=== PATIENT | male | born 1970 | race African-American/Black ===

== ENCOUNTER 2016-08-08 12:19 | Inpatient (IN) | payer MEDICAID, MEDICARE ==
[2016-08-08] VITALS (9 sets, daily range): BP systolic 108–155; BP diastolic 60–89
[~2016-08-08] VITALS: Ht 175.3 cm; Wt 86.2 kg
--- NOTE | 2016-08-08 12:30 | NUR ---
PATIENT BIB [facility] D/T NOSE BLOOD S/P DIALYSIS. PATIENT ALSO C/O BACK PAIN. PATIENT PROVIDED WITH SAFETY AND COMFORT MEASURES. A/OX 4. VITALS STABLE. AWAITING MD ORDERS.
[2016-08-08] MEDS ORDERED: HYDROMORPHONE INJ 2 MG/ML DISP.SYRIN IV ONE (13:00)
[2016-08-08] MEDS ORDERED: diphenhydrAMINE HCL 50 MG/ML VIAL IV ONE (13:00)
[2016-08-08] MEDS ORDERED: HYDROMORPHONE INJ 2 MG/ML DISP.SYRIN ONE (13:03)
[2016-08-08] MEDS ORDERED: diphenhydrAMINE HCL 50 MG/ML VIAL ONE (13:03)
[2016-08-08 13:11] LABS: MEAN CORPUSCULAR HEMOGLOBIN 29 PG (26.0-33.0); MEAN CORPUSCULAR HGB CONC 35 g/dl (31.0-36.0); MEAN CORPUSCULAR VOLUME 84 fL (80-96); RDW COEFFICIENT OF VARIATION 17.6 (11.5-15.0); RED BLOOD CELL COUNT(AUTO) 2.07 MIL/uL (4.5-6.0)
--- NOTE | 2016-08-08 13:12 | NUR ---
MEDICATED PATIENT PER MD ORDERS.
[2016-08-08 13:15] LABS: PLATELET COUNT (AUTO) 47 /CMM (150-450)
[2016-08-08 13:16] LABS: CALCIUM, SERUM 9.8 mg/dL (8.5-10.1); CREATININE 4.8 mg/dL (0.6-1.3); HEMATOCRIT 17 % (39-51)
--- NOTE | 2016-08-08 13:21 | NUR ---
CALLED 'S OFFICE, DOOR REPAIRMAN, PAGED TO CALL BACK
[2016-08-08 13:41] LABS: ALBUMIN 2.4 g/dL (3.4-5.0); BILIRUBIN,DIRECT 1.6 mg/dL (0.0-0.2); BILIRUBIN,TOTAL 2.2 mg/dL (0.2-1.0); TOTAL PROTEIN, SERUM 7.4 g/dL (6.4-8.2)
[2016-08-08 13:51] LABS: EOSINOPHILS % (MANUAL) 2 % (0-4); LYMPHOCYTES % (MANUAL) 21 % (16-48); MONOCYTES % (MANUAL) 10 % (0-11.0); NEUTROPHILS % (MANUAL) 67 (42-76)
--- NOTE | 2016-08-08 14:10 | NUR ---
CALLED NURSING SUP. FOR MS BED
--- NOTE | 2016-08-08 14:25 | NUR ---
REPORT GIVEN TO BIGG MICHELE FOR ROYA
[2016-08-08] MEDS ORDERED: CLON0.2T PO ×2 (15:06)
[2016-08-08] MEDS ORDERED: LACT1CAP61 PO (15:06)
[2016-08-08] MEDS ORDERED: MINO2.5T PO (15:06)
[2016-08-08] MEDS ORDERED: FOLI0.8T23 PO (15:06)
[2016-08-08] MEDS ORDERED: FOLI0.8T PO (15:06)
[2016-08-08] MEDS ORDERED: GABA-532 PO (15:06)
[2016-08-08] MEDS ORDERED: ASCO250T5 PO (15:06)
[2016-08-08] MEDS ORDERED: BENA20TA2 PO (15:06)
[2016-08-08] MEDS ORDERED: CARV25TA2 PO (15:06)
[2016-08-08] MEDS ORDERED: PROT946L PO (15:06)
[2016-08-08] MEDS ORDERED: HYDR2DIS IV (15:06)
[2016-08-08] MEDS ORDERED: CALC667C6 PO (15:06)
[2016-08-08] MEDS ORDERED: HYDR-548 PO (15:06)
[2016-08-08] MEDS ORDERED: HYDR500C2 PO (15:06)
--- NOTE | 2016-08-08 15:46 | NUR ---
LEFT A MESSAGE TO DR. RAMIREZ REGARDING ADMITTING ORDERS
--- NOTE | 2016-08-08 16:50 | NUR ---
LEFT A MESSAGE TO DR BISHOP FOR ADMITTING ORDERS.
--- NOTE | 2016-08-08 16:55 | NUR ---
LAB CALLED REGARDING PLATELETPHERESIS THAT ORDERED IN THE ER. WILL NOTIFY
--- NOTE | 2016-08-08 16:59 | NUR ---
DR RAMIREZ CALLED BACK. ORDERS RECEIVED.
--- NOTE | 2016-08-08 17:05 | NUR ---
CALLED LAB TO CONFIRM ER ORDER AND ONE UNIT OF PRBC
--- NOTE | 2016-08-08 17:30 | NUR ---
CALLED DR WESTFALL FOR PAIN MANAGEMENT. ORDERS RECEIVED AND CARRIED OUT
[2016-08-08] MEDS: diphenhydrAMINE HCL 50 MG/ML VIAL IV PRN (17:44)
[2016-08-08] MEDS: HYDROMORPHONE INJ 2 MG/ML DISP.SYRIN IV PRN ×2 (17:44→23:47)
[2016-08-08] MEDS: MINOXIDIL (2.5MG) 2.5 MG TABLET PO SCH (17:47)
[2016-08-08] MEDS: PROSOURCE / PROSTAT (PYXIS) 30 ML UDC PO SCH (18:00)
[2016-08-08] MEDS ORDERED: CLONIDINE HCL 0.1 MG TABLET PO PRN (18:00)
[2016-08-08] MEDS ORDERED: HYDROCODONE/APAP 10/325MG 1 EA TABLET PO PRN (18:00)
[2016-08-08] MEDS ORDERED: HYDROMORPHONE INJ 2 MG/ML DISP.SYRIN IV PRN (18:00)
[2016-08-08] MEDS: GABAPENTIN 100 MG CAPSULE PO SCH (18:20)
[2016-08-08] MEDS: LACTOBACILLUS RHAMNOSUS GG 1 EACH CAP.SPRINK PO SCH (18:20)
[2016-08-08] MEDS: ASCORBIC ACID 500 MG TABLET PO SCH (18:20)
[2016-08-08] MEDS: CALCIUM ACETATE 667 MG TABLET PO SCH (18:20)
[2016-08-08] MEDS: CLONIDINE HCL 0.1 MG TABLET PO SCH (18:21)
--- NOTE | 2016-08-08 18:40 | NUR ---
RN CLOSING NOTES PATIENT IS IN BED. HOB ELEVATED, BREATHING REGULAR AND UNLABORED, NO SIGNS AND SYMPTOMS OF DISTRESS OR ANY DISCOMFORT NOTED. VITAL SIGNS ARE STABLE. NO COMPLAIN OF CHEST PAIN, SHORTNESS OF BREATH. ALL SCHEDULED MEDS ADMINISTERED. PENDING ORDER OF ONE UNIT PRBC AND PLATELETPHERESIS. WILL ENDORSE TO SUPERINTENDENT WAREHOUSE RN FOR CONTINUITY OF CARE.
--- NOTE | 2016-08-08 19:20 | NUR ---
RN NOTES RECEIVED AWAKE. HOB ELEVATED, BREATHING REGULAR AND UNLABORED, NO SIGNS AND SYMPTOMS OF DISTRESS OR ANY DISCOMFORT NOTED. PT ALERT AND ORIENTED X3, DENIES CHEST PAIN AND SOB AT THIS TIME. NO BLEEDING ON THE NOSE NOTED. BRET CATH ON RIGHT UPPER CHEST WALL PATENT AND INTACT. RIGHT UPPER ARM AV SHUNT, THRILL AND BRUIT PRESENT. KEPT COMFORTABLE AND ATTENDED. SAFETY MEASURES IN PLACE. AWAITING FOR BLOOD AND PLATELET TO BE READY FOR TRANSFUSION. WILL CONTINUE TO MNITOR PT.
[2016-08-08] MEDS ORDERED: BLOOD IV SET 1 EA INFUS.SET MC ONE (20:50)
[2016-08-08] MEDS ORDERED: IV NS 0.9% 250 ML IV ONE (20:51)
[2016-08-08] MEDS: CARVEDILOL 12.5 MG TABLET PO SCH (21:00)
--- NOTE | 2016-08-08 21:00 | NUR ---
RN NOTES COREG 25 MG TAB NOT GIVEN, BP 108/68.ILL CONTINUE TO MONITOR PT.
--- NOTE | 2016-08-08 21:36 | NUR ---
RN NOTES PRBC 1 UNIT STARTED. VITAL SIGNS STABLE BP112/62, TEMP 98.6, RR 18, HR 83 02SAT 97% AT ROOM AIR. PT DENIES ANY PAIN AND DISCOMFORT AT THIS TIME. WILL CONTINUE TO MONITOR PT.
--- NOTE | 2016-08-08 23:47 | NUR ---
RN NOTES PT COMPLAINS OF 9/10 PAIN ON HIS LOWER BACK AND BOTH LOWER LEG. DILAUDID 2MG GIVEN IV. WILL CONTINUE TO MONITOR PT.
[2016-08-09] VITALS (11 sets, daily range): BP systolic 80–129; BP diastolic 41–90
[2016-08-09] MEDS: diphenhydrAMINE HCL 50 MG/ML VIAL IV PRN ×5 (00:01→19:32)
--- NOTE | 2016-08-09 00:01 | NUR ---
RN NOTES PT COMPLAINING OF GENERALIZED BODY ITCHING, BENADRYL 25 MG GIVEN IV. WILL CONTINUE TO MONITOR PT.
--- NOTE | 2016-08-09 00:25 | NUR ---
RN NOTES PRBC 1 UNIT DONE, VITAL SIGNS STABLE, DENIES ANY PAIN AND DISCOMFORT. NO REACTION IN BLOOD TRANSFUSION NOTED. PLATELET TO FOLLOW. WILL CONTINUE TO MONITOR.
--- NOTE | 2016-08-09 01:05 | NUR ---
RN NOTES 1 BAG OF PLATELET STARTED, VITAL SIGNS STABLE BP 127/68, TEMP 98.1, HR 84, RR 19, O2 SAT 97%. PT DENIES ANY PAIN AND DISCOMFORT. WILL CONTINUE TO MONITOR PT.
--- NOTE | 2016-08-09 01:21 | NUR ---
RN NOTES 1 BAG OF PLATELET DONE, VITAL SIGNS STABLE. PT DENIES ANY PAIN AND DISCOMFORT. WILL CONTINUE TO MONITOR.
[2016-08-09] MEDS: HYDROMORPHONE INJ 2 MG/ML DISP.SYRIN IV PRN ×5 (05:46→23:34)
--- NOTE | 2016-08-09 05:46 | NUR ---
RN NOTES PT COMPLAINS OF 9/10 PAIN ON HIS LOWER BACK AND BOTH LOWER LEG. DILAUDID 2MG GIVEN IV. WILL CONTINUE TO MONITOR PT.
--- NOTE | 2016-08-09 06:05 | NUR ---
RN NOTES PT COMPLAINING OF GENERALIZED BODY ITCHING, BENADRYL 25 MG GIVEN IV. WILL CONTINUE TO MONITOR PT.
--- NOTE | 2016-08-09 07:20 | NUR ---
RN NOTES PT ASLEEP, HOB ELEVATED, NO SIGNS OF DISTRESS AND DISCOMFORT NOTED. ON ROOM AIR AND TOLERATED WELL. VITAL SIGNS STABLE, AFEBRILE. NO REACTION FROM BLOOD TRANSFUSION NOTED. NO EPISODE OF EPISTAXIS NOTED. KEPT PAIN AT TOLERABLE LEVEL. KEPT COMFORTABLE AND ATTENDED. FALL PRECAUTION OBSERVED. ENDORSED TO MORNING RN FOR CONTINUITY OF CARE.
[2016-08-09 07:28] LABS: MEAN CORPUSCULAR HEMOGLOBIN 29 PG (26.0-33.0); MEAN CORPUSCULAR HGB CONC 34 g/dl (31.0-36.0); MEAN CORPUSCULAR VOLUME 85 fL (80-96); PLATELET COUNT (AUTO) 67 /CMM (150-450); RDW COEFFICIENT OF VARIATION 18.5 (11.5-15.0); RED BLOOD CELL COUNT(AUTO) 2.21 MIL/uL (4.5-6.0); WHITE BLOOD COUNT (AUTO) 13.1 K/uL (4.3-11.0)
[2016-08-09 07:33] LABS: HEMOGLOBIN 6.4 g/dL (13.5-17.5)
[2016-08-09 07:34] LABS: HEMATOCRIT 19 % (39-51)
--- NOTE | 2016-08-09 08:00 | NUR ---
MS RN AM NOTES RECEIVED AWAKE. HOB ELEVATED, BREATHING REGULAR AND UNLABORED, NO SIGNS AND SYMPTOMS OF DISTRESS OR ANY DISCOMFORT NOTED. PT ALERT AND ORIENTED X3, DENIES CHEST PAIN AND SOB AT THIS TIME. NO EPISTAXIS NOTED. WITH BRET CATH ON RIGHT UPPER CHEST WALL PATENT AND INTACT. RIGHT UPPER ARM AV SHUNT, THRILL AND BRUIT PRESENT. KEPT COMFORTABLE AND ATTENDED. SAFETY MEASURES IN PLACE. PT'S HGB IS 6.4 WILL NOTIFY MD.WILL CONTINUE TO MONITOR PT.CALL LIGHT PLACED WITHIN REACH.
[2016-08-09] MEDS: PROSOURCE / PROSTAT (PYXIS) 30 ML UDC PO SCH ×3 (09:00→17:00)
[2016-08-09 09:09] LABS: EOSINOPHILS % (MANUAL) 2 % (0-4); LYMPHOCYTES % (MANUAL) 29 % (16-48); MONOCYTES % (MANUAL) 7 % (0-11.0); NEUTROPHILS % (MANUAL) 62 (42-76)
[2016-08-09] MEDS ORDERED: ONDANSETRON HCL/PF 4 MG/2 ML VIAL IV PRN (09:30)
[2016-08-09] MEDS ORDERED: EPOETIN ALFA (10,000 UNIT) 10,000 UNIT/ML VIAL SQ ONE (09:30)
[2016-08-09] MEDS ORDERED: ACETAMINOPHEN 325 MG TABLET PO PRN (09:30)
[2016-08-09 09:49] LABS: CALCIUM, SERUM 9.9 mg/dL (8.5-10.1); CREATININE 5.5 mg/dL (0.6-1.3); MAGNESIUM 2.3 mg/dL (1.8-2.4)
[2016-08-09] MEDS: VIT B CMPLX 3/FA/VIT C/BIOTIN 1 TAB TABLET PO SCH (10:04)
[2016-08-09] MEDS: CALCIUM ACETATE 667 MG TABLET PO SCH ×3 (10:08→17:29)
[2016-08-09] MEDS: CLONIDINE HCL 0.1 MG TABLET PO SCH ×3 (10:08→17:00)
[2016-08-09] MEDS: BENAZEPRIL HCL 20 MG TABLET PO SCH (10:09)
[2016-08-09] MEDS: ASCORBIC ACID 500 MG TABLET PO SCH (10:10)
[2016-08-09] MEDS: GABAPENTIN 100 MG CAPSULE PO SCH ×3 (10:11→17:24)
[2016-08-09] MEDS: LACTOBACILLUS RHAMNOSUS GG 1 EACH CAP.SPRINK PO SCH ×3 (10:12→17:22)
[2016-08-09] MEDS: FOLIC ACID 1 MG TABLET PO SCH (10:12)
[2016-08-09] MEDS: MINOXIDIL (2.5MG) 2.5 MG TABLET PO SCH ×3 (10:14→17:00)
[2016-08-09] MEDS: CARVEDILOL 12.5 MG TABLET PO SCH ×2 (10:15→21:21)
[2016-08-09] MEDS: HYDROXYUREA 500 MG CAPSULE PO SCH (10:20)
--- NOTE | 2016-08-09 13:45 | NUR ---
HEMODIALYSIS STARTED. VITAL SIGNS STABLE. WILL CONTINUE TO MONITOR.
--- NOTE | 2016-08-09 14:25 | NUR ---
PT WAS SEEN BY DR WHARTON AND MADE AWARE OF HGB OF 6.4 WITH ORDER OF TRANSFUSING ANOTHER 1 UNIT OF PRBC FOR A TOTAL OF TRANSFUSING [address] TORRI RAMIREZ'S ORDER OF 1 UNIT OF PRBC.
[2016-08-09] MEDS ORDERED: BLOOD IV SET 1 EA INFUS.SET MC ONE (15:14)
[2016-08-09] MEDS ORDERED: IV NS 0.9% 250 ML IV ONE (15:15)
--- NOTE | 2016-08-09 15:45 | NUR ---
1ST UNIT OF PRBC STARTED WITH HEMODIALYSIS. PATIENT VITAL SIGNS STABLE. WILL CONTINUE TO MONITOR.
--- NOTE | 2016-08-09 16:11 | NUR ---
1ST UNIT PRBC TRANSFUSION COMPLETED. PATIENT TOLERATED WELL WITH NO ADVERSE REACTION.
--- NOTE | 2016-08-09 16:15 | NUR ---
2ND UNIT PRBC STARTED, VITAL SIGNS STABLE.
--- NOTE | 2016-08-09 16:30 | NUR ---
2ND UNIT PRBC TRANSFUSION COMPLETED. PATIENT VITAL SIGN STABLE, NO ADVERSE REACTION NOTED.
--- NOTE | 2016-08-09 16:35 | NUR ---
HEMODIALYSIS COMPLETED, 2300 ML OUTPUT. PATIENT TOLERATED WELL. VITAL SIGNS STABLE.
--- NOTE | 2016-08-09 18:00 | NUR ---
PT IS RESTING IN BED WITH NO S/S OF PAIN OR DISTRESS.CALL LIGHT PLACED WITHIN REACH.
--- NOTE | 2016-08-09 19:15 | NUR ---
RN NOTES RECEIVED AWAKE. HOB ELEVATED, BREATHING REGULAR AND UNLABORED, NO SIGNS AND SYMPTOMS OF DISTRESS OR ANY DISCOMFORT NOTED. ALERT AND ORIENTED X3, DENIES CHEST PAIN AND SOB AT THIS TIME. PORT A CATH ON RIGHT UPPER CHEST WALL PATENT AND INTACT. RIGHT UPPER ARM AV SHUNT, THRILL AND BRUIT PRESENT. NO SIGNS OF BLEEDING AND NO REACTION TO BT NOTED. KEPT COMFORTABLE AND ATTENDED. SAFETY MEASURES IN PLACE. WILL CONTINUE TO MONITOR PT.
--- NOTE | 2016-08-09 23:34 | NUR ---
RN NOTES PT COMPLAINS OF PAIN ON HIS LOWER BACK AND BOTH LEGS, DILAUDID 2 MG GIVEN IV. WILL CONTINUE TO MONITOR PT.
[2016-08-10] MEDS: HYDROMORPHONE INJ 2 MG/ML DISP.SYRIN IV PRN ×5 (04:18→21:22)
[2016-08-10] MEDS: diphenhydrAMINE HCL 50 MG/ML VIAL IV PRN ×5 (04:29→21:22)
--- NOTE | 2016-08-10 04:29 | NUR ---
RN NOTES PT VERBALIZING GENERALIZED ITCHING, BENADRYL 25 MG GIVEN IV. WILL CONTINUE TO MONITOR PT.
[2016-08-10 06:30] LABS: HEMATOCRIT 22 % (39-51); HEMOGLOBIN 7.7 g/dL (13.5-17.5); MEAN CORPUSCULAR HEMOGLOBIN 30 PG (26.0-33.0); MEAN CORPUSCULAR HGB CONC 35 g/dl (31.0-36.0); MEAN CORPUSCULAR VOLUME 86 fL (80-96); PLATELET COUNT (AUTO) 63 /CMM (150-450); RDW COEFFICIENT OF VARIATION 18.1 (11.5-15.0); WHITE BLOOD COUNT (AUTO) 12.2 K/uL (4.3-11.0)
--- NOTE | 2016-08-10 06:45 | NUR ---
RN NOTES PT COMPLAINS OF LOWER BACK AND BOTH LEG PAIN 10/29, DILAUDID 2 MG GIVEN IV. WILL CONTINUE TO MONITOR PT.
--- NOTE | 2016-08-10 06:47 | NUR ---
RN NOTES PT ASLEEP, HOB ELEVATED, NO SIGNS OF DISTRESS AND DISCOMFORT NOTED. ON ROOM AIR AND TOLERATED WELL. VITAL SIGNS STABLE, AFEBRILE. NO REACTION FROM BLOOD TRANSFUSION NOTED. NO EPISODE OF EPISTAXIS AND SIGNS OF BLEEDING NOTED. KEPT PAIN AT TOLERABLE LEVEL. KEPT COMFORTABLE AND ATTENDED. FALL PRECAUTION OBSERVED. WILL ENDORSE TO MORNING RN FOR CONTINUITY OF CARE.
[2016-08-10 06:51] LABS: CALCIUM, SERUM 9.7 mg/dL (8.5-10.1); CREATININE 4.8 mg/dL (0.6-1.3); MAGNESIUM 2.3 mg/dL (1.8-2.4); PHOSPHORUS 6.1 mg/dL (2.5-4.9); POTASSIUM 4.4 mmol/L (3.5-5.1)
--- NOTE | 2016-08-10 07:15 | NUR ---
MS RN OPENING NOTES RECEIVED PT. FROM NIGHTSHIFT NURSE IN STABLE CONDITION. PT. IS A/O X3. NO SOB OR SIGNS OF DISTRESS NOTED. NO COMPLAINTS OF DIZZINESS OR VERBALIZED PAIN AT THIS TIME. PORT A CATH PRESENT ON RIGHT UPPER CHEST WALL PATENT AND INTACT. RIGHT UPPER ARM AV SHUNT ALSO PRESENT. THRILL FELT AND BRUIT AUSCULTATED. BED IN LOW LOCKED POSITION, SIDE RAILS UP X2, CALL LIGHT WITHIN REACH. WILL CONTINUE TO MONITOR.
[2016-08-10 07:42] LABS: LYMPHOCYTES % (MANUAL) 19 % (16-48); MONOCYTES % (MANUAL) 9 % (0-11.0); NEUTROPHILS % (MANUAL) 72 (42-76)
[2016-08-10 07:48] LABS: IRON, SERUM 221 ug/dl (50-175); TOTAL IRON BINDING CAPACITY 208 ug/dl (250-450)
[2016-08-10 08:00] VITALS: BP 120/76
[2016-08-10] MEDS: LACTOBACILLUS RHAMNOSUS GG 1 EACH CAP.SPRINK PO SCH ×3 (08:49→16:52)
[2016-08-10] MEDS: ASCORBIC ACID 500 MG TABLET PO SCH (08:50)
[2016-08-10] MEDS: GABAPENTIN 100 MG CAPSULE PO SCH ×3 (08:50→16:53)
[2016-08-10] MEDS: CALCIUM ACETATE 667 MG TABLET PO SCH ×3 (08:50→16:53)
[2016-08-10] MEDS: FOLIC ACID 1 MG TABLET PO SCH (08:50)
[2016-08-10] MEDS: BENAZEPRIL HCL 20 MG TABLET PO SCH (08:50)
[2016-08-10] MEDS: VIT B CMPLX 3/FA/VIT C/BIOTIN 1 TAB TABLET PO SCH (08:50)
[2016-08-10] MEDS: HYDROXYUREA 500 MG CAPSULE PO SCH (08:51)
[2016-08-10] MEDS: MINOXIDIL (2.5MG) 2.5 MG TABLET PO SCH ×3 (08:51→16:53)
[2016-08-10] MEDS: CARVEDILOL 12.5 MG TABLET PO SCH ×2 (08:58→20:18)
[2016-08-10] MEDS: PROSOURCE / PROSTAT (PYXIS) 30 ML UDC PO SCH ×3 (08:59→16:53)
[2016-08-10] MEDS: CLONIDINE HCL 0.1 MG TABLET PO SCH ×3 (08:59→16:53)
--- NOTE | 2016-08-10 09:00 | NUR ---
MS MICHELE NOTES 0900 BP MEDICATIONS WERE HELD DUE TO DIALYSIS TREATMENT
--- NOTE | 2016-08-10 09:21 | NUR ---
MS RN NOTES PT. WILL NO LONGER GET DIALYSIS TODAY. WILL RECEIVE TOMORROW. BP REMAINS STABLE AT 120/76, HR 72. PT. ASKS THAT WE CONTINUE TO HOLD BP MEDICATION AND SEE HOW HIS BP IS AROUND 1300 WHEN HE HIS NEXT BP MEDICATIONS ARE DUE.
[2016-08-10 15:38] VITALS: BP 120/76
[2016-08-10 15:42] VITALS: BP 127/64
--- NOTE | 2016-08-10 19:25 | NUR ---
MS RN OPENING NOTES: RECEIVED PT ASLEEP IN BED. PT IS A/O X3. CALL LIGHT WITHIN PT'S REACH. BED KEPT IN LOCKED, LOWEST POSITION, AND SIDE RAILS X 2 UP. PT HAS PORT A CATH ON R UPPER CHEST WALL. PT ALSO HAS R UPPER AV SHUNT. NO SIGNS OR SYMPTOMS OF DISTRESS NOTED AT THIS TIME. WILL CONTINUE TO MONITOR PT.
[2016-08-10 20:00] VITALS: BP 134/65
--- NOTE | 2016-08-10 21:22 | NUR ---
MS RN NOTES: PT COMPLAINED OF 8/10 LOWER BACK AND BILATERAL LEG PAIN. PT WAS ADMINISTERED DILAUDID 2MG IV AND BENADRYL 25MG IV. WILL CONTINUE TO MONITOR PT.
[2016-08-11] MEDS: diphenhydrAMINE HCL 50 MG/ML VIAL IV PRN ×6 (01:57→21:58)
[2016-08-11] MEDS: HYDROMORPHONE INJ 2 MG/ML DISP.SYRIN IV PRN ×6 (01:58→21:58)
--- NOTE | 2016-08-11 01:58 | NUR ---
MS RN NOTES: PT COMPLAINED OF 9/10 LOWER BACK AND BILATERAL LEG PAIN. PT WAS ADMINISTERED HIS DILAUDID AND BENADRYL. PT'S BP WAS 119/60 HR 80. WILL CONTINUE TO MONITOR PT.
--- NOTE | 2016-08-11 06:00 | NUR ---
MS RN NOTES: PT REQUESTED FOR HIS DILAUDID AND BENADRYL DUE TO 8/10 LOWER BACK PAIN AND BILATERAL LEGS PAIN. MEDS WERE ADMINISTERED. BP WAS 114/58 HR 80. WILL CONTINUE TO MONITOR PT.
--- NOTE | 2016-08-11 07:10 | NUR ---
MS RN OPENING NOTES RECEIVED PT. FROM NIGHTSHIFT NURSE IN STABLE CONDITION. PT. IS A/O X3. NO SOB OR SIGNS OF DISTRESS NOTED. NO COMPLAINTS OF DIZZINESS OR VERBALIZED PAIN AT THIS TIME.NO REPORTS OF ANY BLEEDING EPISODES DURING THE NIGHT. PORT A CATH PRESENT ON RIGHT UPPER CHEST WALL PATENT AND INTACT. RIGHT UPPER ARM AV SHUNT ALSO PRESENT. THRILL FELT AND BRUIT AUSCULTATED. BED IN LOW LOCKED POSITION, SIDE RAILS UP X2, CALL LIGHT WITHIN REACH. WILL CONTINUE TO MONITOR.
--- NOTE | 2016-08-11 07:24 | NUR ---
MS RN CLOSING NOTES: ALL NEEDS WERE ATTENDED AND ANTICIPATED FOR. PT KEPT CLEAN, DRY, AND COMFORTABLE. PAIN MANAGEMENT WAS TAKEN CARE OF. PT HAS PORT A CATH ON R UPPER CHEST WALL AND IS PATENT AND INTACT. PT ALSO HAS R UPPER AV SHUNT AND BRUIT/THRILL PRESENT. PT INFORMED OF UPCOMING HD THIS MORNING. CALL LIGHT WITHIN PT'S REACH. BED KEPT IN LOCKED, LOWEST, POSITION, AND SIDE RAILS X 2 UP. NO SIGNS OR SYMPTOMS OF DISTRESS NOTED AT THIS TIME. ENDORSED TO AM NURSE FOR ROYA.
[2016-08-11 08:00] VITALS: BP 109/66
[2016-08-11] MEDS: GABAPENTIN 100 MG CAPSULE PO SCH ×3 (08:35→17:55)
[2016-08-11] MEDS: FOLIC ACID 1 MG TABLET PO SCH (08:35)
[2016-08-11] MEDS: CALCIUM ACETATE 667 MG TABLET PO SCH ×3 (08:35→17:55)
[2016-08-11] MEDS: ASCORBIC ACID 500 MG TABLET PO SCH (08:35)
[2016-08-11] MEDS: VIT B CMPLX 3/FA/VIT C/BIOTIN 1 TAB TABLET PO SCH (08:35)
[2016-08-11] MEDS: LACTOBACILLUS RHAMNOSUS GG 1 EACH CAP.SPRINK PO SCH ×3 (08:35→17:55)
[2016-08-11] MEDS: HYDROXYUREA 500 MG CAPSULE PO SCH (08:35)
[2016-08-11] MEDS: BENAZEPRIL HCL 20 MG TABLET PO SCH (08:36)
[2016-08-11] MEDS: CLONIDINE HCL 0.1 MG TABLET PO SCH ×3 (08:36→17:00)
[2016-08-11] MEDS: CARVEDILOL 12.5 MG TABLET PO SCH ×2 (08:36→21:30)
[2016-08-11] MEDS: MINOXIDIL (2.5MG) 2.5 MG TABLET PO SCH ×3 (08:36→17:00)
[2016-08-11] MEDS: PROSOURCE / PROSTAT (PYXIS) 30 ML UDC PO SCH ×3 (08:37→16:28)
--- NOTE | 2016-08-11 13:49 | NUR ---
MS RN NOTES 1300 BP MEDICATIONS WERE NOT ADMINISTERED. PT. IS CURRENTLY RECEIVING DIALYSIS TREATMENT AND IS EXPECTED TO GET 5L TAKEN OUT. CURRENT BP IS 123/55, HR 85
[2016-08-11] MEDS ORDERED: EPOETIN ALFA (10,000 UNIT) 10,000 UNIT/ML VIAL IV ONE (15:00)
[2016-08-11 15:53] LABS: HEMOGLOBIN 7.2 g/dL (13.5-17.5)
[2016-08-11 16:00] VITALS: BP 89/58
--- NOTE | 2016-08-11 18:55 | NUR ---
MS RN CLOSING NOTES: ALL NEEDS WERE ATTENDED AND ANTICIPATED FOR. PT KEPT CLEAN, DRY, AND COMFORTABLE. PAIN MANAGEMENT WAS TAKEN CARE OF. NO ACUTE CHANGES IN CONDITION DURING SHIFT. CALL LIGHT WITHIN PT'S REACH. BED KEPT IN LOCKED, LOWEST, POSITION, AND SIDE RAILS X 2 UP. NO SIGNS OR SYMPTOMS OF DISTRESS NOTED AT THIS TIME. WILL ENDORSE TO NIGHTSHIFT NURSE FOR ROYA
--- NOTE | 2016-08-11 19:00 | NUR ---
MS RN INITIAL NOTE PT RECEIVED IN BED, NO S/S OF RESPIRATORY DISTRESS OR SOB. IV SITE INTACT WITH NO S/S OF INFILTRATION NOTED. SAFE ENVIRONMENT PROVIDED FREE OF CLUTTERS .BED IN LOCKED, LOW POSITION. CALL LIGHT WITHIN EASY REACH. WILL CONTINUE TO MONITOR.
[2016-08-11 20:00] VITALS: BP 124/59
[2016-08-11 20:03] VITALS: BP 124/59
[2016-08-12] MEDS: diphenhydrAMINE HCL 50 MG/ML VIAL IV PRN ×6 (01:58→22:13)
[2016-08-12] MEDS: HYDROMORPHONE INJ 2 MG/ML DISP.SYRIN IV PRN ×6 (01:59→22:13)
--- NOTE | 2016-08-12 06:24 | NUR ---
MS RN CLOSING NOTES PATIENT COMFORTABLY ASLEEP AND EASILY AWAKEN, HEAD OF BED ELEVATED FOR BETTER LUNG EXPANSION TOLERATING ROOM AIR 02 SAT AT 98% NOT APPARENT DISTRESS. AFEBRILE, ALL NURSING CARE NEEDS PROVIDED AND RENDERED, NEEDS ATTENDED AND ANTICIPATED, KEPT CLEAN AND DRY AND COMFORTABLE, GOOD SKIN CARE PROVIDED. FREQUENT VISUAL CHECK DONE FOR SAFETY Q2H, SAFE HAZARD FREE ENVIRONMENT PROVIDED. CALL LIGHT WITHIN EASY TO REACH, ON LOW BED AT ALL TIMES TO ENSURE SAFETY, WILL ENDORSE TO THE NEXT SHIFT CONTINUE PLAN OF CARE.
--- NOTE | 2016-08-12 07:30 | NUR ---
RN MS NOTES PT IN BED, AWAKE, ALERT AND ORIENTED, NO COMPLAINT OF PAIN AT THIS TIME, BREATHING PATTERN NORMAL, CALL LIGHT WITHIN REACH, KEPT COMFORTABLE, ISOLATION PRECAUTIONS OBSERVED.
[2016-08-12 08:00] VITALS: BP 102/55
[2016-08-12] MEDS: CALCIUM ACETATE 667 MG TABLET PO SCH ×3 (08:52→17:15)
[2016-08-12] MEDS: ASCORBIC ACID 500 MG TABLET PO SCH (08:52)
[2016-08-12] MEDS: GABAPENTIN 100 MG CAPSULE PO SCH ×3 (08:52→17:15)
[2016-08-12] MEDS: FOLIC ACID 1 MG TABLET PO SCH (08:52)
[2016-08-12] MEDS: LACTOBACILLUS RHAMNOSUS GG 1 EACH CAP.SPRINK PO SCH ×3 (08:52→17:15)
[2016-08-12] MEDS: VIT B CMPLX 3/FA/VIT C/BIOTIN 1 TAB TABLET PO SCH (08:53)
[2016-08-12] MEDS: HYDROXYUREA 500 MG CAPSULE PO SCH (08:53)
[2016-08-12] MEDS: PROSOURCE / PROSTAT (PYXIS) 30 ML UDC PO SCH ×3 (08:57→17:00)
[2016-08-12] MEDS: BENAZEPRIL HCL 20 MG TABLET PO SCH (09:00)
[2016-08-12] MEDS: CLONIDINE HCL 0.1 MG TABLET PO SCH ×3 (09:00→17:00)
[2016-08-12] MEDS: MINOXIDIL (2.5MG) 2.5 MG TABLET PO SCH ×3 (09:00→17:00)
[2016-08-12] MEDS: CARVEDILOL 12.5 MG TABLET PO SCH ×2 (09:00→20:16)
--- NOTE | 2016-08-12 10:17 | NUR ---
RN MS NOTES PAIN MEDICATION GIVEN FOR LOW BACK PAIN, SPOKE WITH DR. BISHOP, NO ORDER FOR BLOOD DRAW GIVEN, INFORMED OF LATEST LAB RESULTS.
--- NOTE | 2016-08-12 13:00 | NUR ---
RN MS NOTES PT IN BED, AWAKE, ALERT AND ORIENTED, PAIN MEDICATION GIVEN FOR PAIN MANAGEMENT ORDERED, NOT IN DISTRESS, SITS IN BED AT TIMES, TOLERATING CURRENT DIET WELL, CALL LIGHT WITHIN REACH AT ALL TIMES.
[2016-08-12 16:00] VITALS: BP 106/62
--- NOTE | 2016-08-12 18:29 | NUR ---
RN MS NOTES PT IN BED, AWAKE, WATCHING VIDEOS ON HIS CELLPHONE, NOT IN DISTRESS, PAIN MEDICATION GIVEN FOR LOWER BACK PAIN, VERBALIZED RELIEF AFTER ADMINISTRATION, TOLERATING CURRENT DIET WELL, PM MEDS GIVEN, ALL NEEDS ATTENDED.
--- NOTE | 2016-08-12 19:25 | NUR ---
MS RN OPENING NOTES: RECEIVED PT IN BED AWAKE AND IS SITTING UP AND EATING. NO SIGNS OR SYMPTOMS OF DISTRESS NOTED AT THIS TIME. CALL LIGHT WITHIN PT'S REACH. BED KEPT IN LOCKED, LOWEST POSITION, AND SIDE RAILS X 2 UP. PT HAS R CHEST WALL PORTACATH AND IS PATENT AND INTACT. PT ALSO HAS AV SHUNT RIGHT UPPER ARM. WILL CONTINUE TO MONITOR PT.
[2016-08-12 20:00] VITALS: BP 122/60
[2016-08-12] MEDS: MUPIROCIN OINT 2% 22 GM TUBE SCH (20:16)
--- NOTE | 2016-08-12 22:13 | NUR ---
MS RN NOTES: PT COMPLAINED OF 9/10 LOWER BACK AND BILATERAL LOWER LEG PAIN. PT WAS ADMINISTERED DILAUDID 2MG WITH BENADRYL INJ 25MG. BP WAS 123/70 HR 74. WILL CONTINUE TO MONITOR PT.
[2016-08-13] MEDS: HYDROMORPHONE INJ 2 MG/ML DISP.SYRIN IV PRN ×5 (05:26→22:25)
[2016-08-13] MEDS: diphenhydrAMINE HCL 50 MG/ML VIAL IV PRN ×5 (05:26→22:26)
--- NOTE | 2016-08-13 05:26 | NUR ---
MS RN NOTES: PT COMPLAINED OF 8/10 LOWER BACK AND BILATERAL LOWER LEG PAIN. PT WAS ADMINISTERED DILAUDID 2MG AND BENADRYL 25MG. WILL CONTINUE TO MONITOR PT.
--- NOTE | 2016-08-13 07:18 | NUR ---
Handoff rounds. Patient sleeping at this time. Patient possible for dialysis today.
--- NOTE | 2016-08-13 07:23 | NUR ---
MS RN CLOSING NOTES: ALL NEEDS WERE ATTENDED AND ANTICIPATED FOR. PT IS IN BED ASLEEP AND IS A/O X3. CALL LIGHT WITHIN PT'S REACH. NO SIGNS OR SYMPTOMS OF DISTRESS NOTED AT THIS TIME. PT HAS R CHEST WALL PORT A CATH AND IS PATENT AND INTACT. BRUIT/THRILL PRESENT IN R UPPER ARM AV SHUNT. ENDORSED TO AM NURSE FOR ROYA.
[2016-08-13 08:00] VITALS: BP 112/58
[2016-08-13] MEDS: PROSOURCE / PROSTAT (PYXIS) 30 ML UDC PO SCH ×3 (09:00→16:31)
[2016-08-13] MEDS: HYDROXYUREA 500 MG CAPSULE PO SCH (09:00)
[2016-08-13] MEDS: FOLIC ACID 1 MG TABLET PO SCH (09:36)
[2016-08-13] MEDS: GABAPENTIN 100 MG CAPSULE PO SCH ×3 (09:36→16:39)
[2016-08-13] MEDS: CLONIDINE HCL 0.1 MG TABLET PO SCH ×3 (09:38→16:30)
[2016-08-13] MEDS: CARVEDILOL 12.5 MG TABLET PO SCH ×2 (09:39→20:43)
[2016-08-13] MEDS: BENAZEPRIL HCL 20 MG TABLET PO SCH (09:39)
[2016-08-13] MEDS: VIT B CMPLX 3/FA/VIT C/BIOTIN 1 TAB TABLET PO SCH (09:39)
[2016-08-13] MEDS: LACTOBACILLUS RHAMNOSUS GG 1 EACH CAP.SPRINK PO SCH ×3 (09:39→16:39)
[2016-08-13] MEDS: CALCIUM ACETATE 667 MG TABLET PO SCH ×3 (09:40→16:39)
[2016-08-13] MEDS: MINOXIDIL (2.5MG) 2.5 MG TABLET PO SCH ×3 (09:40→16:31)
[2016-08-13] MEDS: ASCORBIC ACID 500 MG TABLET PO SCH (09:40)
[2016-08-13] MEDS: MUPIROCIN OINT 2% 22 GM TUBE SCH ×2 (09:44→20:45)
[2016-08-13 12:50] VITALS: BP 118/68
[2016-08-13 16:00] VITALS: BP 115/61
[2016-08-13 16:54] VITALS: BP 109/51
--- NOTE | 2016-08-13 19:30 | NUR ---
MS RN OPENING NOTES: PATIENT IN BED, AOX4, ON ROOM AIR, BREATHING EVEN AND UNLABORED. COMPLAINS OF 6- 7/10 PAIN OVER ENOC KNEES, BLE AND LOWER BACK, EXPLAINED PAIN MANAGEMENT PLAN AND REITERATED WHEN NEXT PAIN MEDS ARE DUE. PATIENT HAS R UPPER ARM AV FISTULA, THRILLS PALPATED. PROVIDED FOR COMFORT AND SAFETY. WILL CONT TO MONITOR.
[2016-08-13 20:00] VITALS: BP 110/48
--- NOTE | 2016-08-13 21:30 | NUR ---
RN NOTES: CARVEDILOL 25 MG SCHEDULED AT THIS TIME WAS NOT GIVEN DUE TO DECREASED BP AT 108/45. WILL CONT TO MONITOR.
--- NOTE | 2016-08-13 22:35 | NUR ---
RN NOTES: PT COMPLAINED OF PAIN 9/10 OVER LOWER BACK, ENOC KNEES AND LOWER LEGS. ADMINISTERED DILAUDID 2 MG AND BENADRYL 25 MG PRN PER PATIENT REQUEST DILAUDID MAKES HIM ITCH. WILL CONT TO MONITOR.
[2016-08-14] VITALS (7 sets, daily range): BP systolic 100–122; BP diastolic 49–62
[2016-08-14] MEDS: HYDROMORPHONE INJ 2 MG/ML DISP.SYRIN IV PRN ×5 (02:22→18:49)
[2016-08-14] MEDS: diphenhydrAMINE HCL 50 MG/ML VIAL IV PRN ×5 (02:23→18:49)
--- NOTE | 2016-08-14 07:00 | NUR ---
MS RN CLOSING NOTES: PATIENT IN BED, AOX4, ON ROOM AIR, BREATHING EVEN AND UNLABORED. R CHEST WALL PORTACATH INTACT AND PATENT TO FLUSH. CASSIDY AV FISTULA PALPABLE FOR THRILLS. DUE MEDS GIVEN. PROVIDED FOR COMFORT AND SAFETY. NO ACUTE CHANGE IN CONDITION NOTED THROUGH SHIFT. WILL ENDORSE TO AM RN FOR ROYA.
--- NOTE | 2016-08-14 07:30 | NUR ---
MS/RN NOTES RIGHT ARM NO BLOOD DRAW, AND BLOOD PRESSURE. PT. IS LYING IN BED WITH HEAD OF BED UP, A&OX4. NO SOB, BREATHING ON ROOM AIR UNLABORED. NO S/S OF ACUTE DISTRESS. BLOOD WAS DRAWN THIS MORNING FROM PT.'S PORTACATH. PT. HAS RIGHT UPPER ARM AV FISTULA. BED IS IN LOW POSITION, 2 SIDE RAILS UP, AND INSTRUCTED PT. TO USE CALL LIGHT WITHIN REACH. WILL CONTINUE TO ASSESS AND MONITOR.
[2016-08-14 07:48] LABS: MEAN CORPUSCULAR HEMOGLOBIN 29 PG (26.0-33.0); MEAN CORPUSCULAR HGB CONC 34 g/dl (31.0-36.0); MEAN CORPUSCULAR VOLUME 86 fL (80-96); PLATELET COUNT (AUTO) 57 /CMM (150-450); RDW COEFFICIENT OF VARIATION 19.4 (11.5-15.0); RED BLOOD CELL COUNT(AUTO) 2.35 MIL/uL (4.5-6.0); WHITE BLOOD COUNT (AUTO) 14.3 K/uL (4.3-11.0)
--- NOTE | 2016-08-14 08:00 | NUR ---
MS/RN NOTES LAB CALLED TO REPORT PT.'S H&H. PT.'S HEMOGLOBIN IS 6.9, AND HEMATOCRIT IS 20. WILL NOTIFY
[2016-08-14 08:02] LABS: HEMATOCRIT 20 % (39-51); HEMOGLOBIN 6.9 g/dL (13.5-17.5)
[2016-08-14] MEDS: PROSOURCE / PROSTAT (PYXIS) 30 ML UDC PO SCH ×3 (09:00→17:00)
[2016-08-14 10:18] LABS: LYMPHOCYTES % (MANUAL) 22 % (16-48); MONOCYTES % (MANUAL) 4 % (0-11.0); NEUTROPHILS % (MANUAL) 74 (42-76)
[2016-08-14] MEDS: MINOXIDIL (2.5MG) 2.5 MG TABLET PO SCH ×3 (10:42→18:35)
[2016-08-14] MEDS: BENAZEPRIL HCL 20 MG TABLET PO SCH (10:43)
[2016-08-14] MEDS: CALCIUM ACETATE 667 MG TABLET PO SCH ×3 (10:43→18:04)
[2016-08-14] MEDS: FOLIC ACID 1 MG TABLET PO SCH (10:43)
[2016-08-14] MEDS: GABAPENTIN 100 MG CAPSULE PO SCH ×3 (10:43→18:04)
[2016-08-14] MEDS: VIT B CMPLX 3/FA/VIT C/BIOTIN 1 TAB TABLET PO SCH (10:43)
[2016-08-14] MEDS: ASCORBIC ACID 500 MG TABLET PO SCH (10:44)
[2016-08-14] MEDS: LACTOBACILLUS RHAMNOSUS GG 1 EACH CAP.SPRINK PO SCH ×3 (10:44→18:04)
[2016-08-14] MEDS: CARVEDILOL 12.5 MG TABLET PO SCH ×2 (10:45→21:00)
[2016-08-14] MEDS: CLONIDINE HCL 0.1 MG TABLET PO SCH ×3 (10:46→18:35)
[2016-08-14] MEDS: MUPIROCIN OINT 2% 22 GM TUBE SCH (10:46)
[2016-08-14] MEDS: HYDROXYUREA 500 MG CAPSULE PO SCH (10:54)
--- NOTE | 2016-08-14 19:00 | NUR ---
MS/RN CLOSING NOTES PT. IS IN BED AWAKE, A&OX4. NO SOB, BREATHING ON OXYGEN AT 2L/MIN WITH NASAL CANNULA OXYGEN SATURATION AT 95%. NO S/S OF ACUTE DISTRESS. PT. HAS A PORT CATHETER FOR HEMODIALYSIS. PT. RECEIVED HEMODIALYSIS TODAY WITH 5 LITERS OUT, AND ONE UNIT OF PACKED RED BLOOD CELLS TRANSFUSED WITHOUT COMPLICATIONS. PT. HAS A RIGHT UPPER ARM FISTULA, NO BLOOD PRESSURE AND BLOOD DRAWS ON RIGHT ARM SIGN POSTED IN PT.'S ROOM. PT. REPORTED HE USED TO HAVE A FISTULA ON HIS LEFT UPPER ARM AND BLOOD PRESSURE WAS TAKEN ON LEFT FOREARM. BED IS IN LOW POSITION, 2 SIDE RAILS UP, AND INSTRUCTED PT. TO USE CALL LIGHT FOR ASSISTANCE.
--- NOTE | 2016-08-14 20:22 | NUR ---
MS/RN PATIENT AWAKE, SOMEWHAT SLEEPY, APPEAR COMFORTABLE, NO SIGNS OF DISTRESS NOTED, ENCOURAGED TO WAKE UP COUGH AND DEEP BREATH HIS O2 SAT WAS IN 80'S WHICH INCREASED TO 97% AFTER DEEP BREATHING. WILL MONITOR.
[2016-08-15] MEDS: diphenhydrAMINE HCL 50 MG/ML VIAL IV PRN ×5 (00:10→16:51)
[2016-08-15] MEDS: HYDROMORPHONE INJ 2 MG/ML DISP.SYRIN IV PRN ×5 (00:11→16:50)
[2016-08-15] MEDS: MUPIROCIN OINT 2% 22 GM TUBE SCH ×2 (00:16→09:23)
--- NOTE | 2016-08-15 01:44 | NUR ---
MS/RN PATIENT SLEEPING POST DILAUDID AND BENADRYL, AROUSABLE, APPEAR COMFORTABLE, NO SIGNS OF DISTRESS NOTED, CALL LIGHT IN REACH. WILL CONTINUE TO MONITOR.
--- NOTE | 2016-08-15 06:24 | NUR ---
MS/RN PATIENT AWAKE, ALERT, ORIENTED, COMFORTABLE, NO DISTRESS NOTED, ALL NEEDS ATTENDED AT THIS TIME. WILL CONTINUE TO MONITOR.
--- NOTE | 2016-08-15 06:45 | NUR ---
MS/RN BLOOD DRAW DONE FROM BRET CATH ASEPTICALLY.
[2016-08-15 07:19] LABS: HEMATOCRIT 22 % (39-51); HEMOGLOBIN 7.6 g/dL (13.5-17.5); MEAN CORPUSCULAR HEMOGLOBIN 29 PG (26.0-33.0); MEAN CORPUSCULAR HGB CONC 34 g/dl (31.0-36.0); MEAN CORPUSCULAR VOLUME 86 fL (80-96); PLATELET COUNT (AUTO) 56 /CMM (150-450); RDW COEFFICIENT OF VARIATION 19.5 (11.5-15.0); RED BLOOD CELL COUNT(AUTO) 2.61 MIL/uL (4.5-6.0)
--- NOTE | 2016-08-15 07:30 | NUR ---
RECEIVED PT. IN AM ALERT AND ORIENTED X4.LACQUER SIZER LIGHT SHAYNA. ASKING FOR PAIN MED.
[2016-08-15 08:00] VITALS: BP 108/56
[2016-08-15] MEDS: BENAZEPRIL HCL 20 MG TABLET PO SCH (09:00)
[2016-08-15] MEDS: MINOXIDIL (2.5MG) 2.5 MG TABLET PO SCH ×3 (09:00→17:00)
[2016-08-15] MEDS: PROSOURCE / PROSTAT (PYXIS) 30 ML UDC PO SCH ×3 (09:00→17:00)
[2016-08-15] MEDS: CLONIDINE HCL 0.1 MG TABLET PO SCH ×3 (09:00→17:00)
[2016-08-15] MEDS: CARVEDILOL 12.5 MG TABLET PO SCH (09:00)
[2016-08-15] MEDS: VIT B CMPLX 3/FA/VIT C/BIOTIN 1 TAB TABLET PO SCH (09:13)
[2016-08-15] MEDS: ASCORBIC ACID 500 MG TABLET PO SCH (09:13)
[2016-08-15] MEDS: GABAPENTIN 100 MG CAPSULE PO SCH ×3 (09:13→17:10)
[2016-08-15] MEDS: LACTOBACILLUS RHAMNOSUS GG 1 EACH CAP.SPRINK PO SCH ×3 (09:13→17:10)
[2016-08-15] MEDS: FOLIC ACID 1 MG TABLET PO SCH (09:14)
[2016-08-15] MEDS: CALCIUM ACETATE 667 MG TABLET PO SCH ×3 (09:14→17:10)
[2016-08-15] MEDS: HYDROXYUREA 500 MG CAPSULE PO SCH (09:22)
[2016-08-15 11:07] LABS: BAND % (MANUAL) 1 % (0.0-5.0); EOSINOPHILS % (MANUAL) 3 % (0-4); LYMPHOCYTES % (MANUAL) 17 % (16-48); MONOCYTES % (MANUAL) 12 % (0-11.0); NEUTROPHILS % (MANUAL) 67 (42-76)
--- NOTE | 2016-08-15 14:00 | NUR ---
MD IN WITH DISCHARGE ORDER.
[2016-08-15 16:03] VITALS: BP 118/52
[2016-08-15 17:00] VITALS: BP 117/52
--- NOTE | 2016-08-15 17:40 | NUR ---
MED X 3 WITH MORPHINE AND BENADRYL FOR GENERALIZED PAIN.ACCESS FOR BRET CATH REMOVED AND FLUSHED.REPORT CALLED TO CRISTINA AT FACILITY.TAKEN TO FACILITY VIA AMBULANCE.
== END 2016-08-15 18:00 | DRG 661 ==
LOC: ER 12:25 → MED 14:48
PROVIDERS: ADMIT Internal Medicine Nephrology; ATTEND Internal Medicine Nephrology
PROC: 30233N1 Transfusion of Nonautologous Red Blood Cells into Peripheral Vein, Percutaneous Approach (ICD-10-PCS; principal; 2016-08-08)
PROC: 30233R1 Transfusion of Nonautologous Platelets into Peripheral Vein, Percutaneous Approach (ICD-10-PCS; 2016-08-09)
PROC: 5A1D60Z (ICD-10-PCS; 2016-08-09)
DX: D69.6 Thrombocytopenia, unspecified (principal); K72.00 Acute and subacute hepatic failure without coma; I13.2 Hypertensive heart and chronic kidney disease with heart failure and with stage 5 chronic kidney disease, or end stage renal disease; D57.00 Hb-SS disease with crisis, unspecified; N18.6 End stage renal disease; D62 Acute posthemorrhagic anemia; R04.0 Epistaxis; Z99.2 Dependence on renal dialysis; G89.4 Chronic pain syndrome; N43.3 Hydrocele, unspecified; Z86.718 Personal history of other venous thrombosis and embolism; I50.32 Chronic diastolic (congestive) heart failure; D63.1 Anemia in chronic kidney disease
CPT/HCPCS: 36415; 76870-TC; 80048-TC; 80076-TC; 83540-TC; 83735-TC; 84100-TC; 85025-TC; 85027-TC; 86850-TC; 86921-TC; 87081-TC; 90935-TC; 94799-TC; A4217; A4606; A6402; J0885; J1170; J1200; J7050; P9016-BL; P9034-BL; Z7610